=== PATIENT | female | born 2005 | race African-American/Black ===

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

== ENCOUNTER 2024-06-20 08:39 | Emergency (ER) | payer MEDICAID ==
[~2024-06-20] VITALS: Ht 170.2 cm; Wt 105.0 kg
[2024-06-20 09:08] VITALS: O2SAT 97
[2024-06-20 09:17] LABS: BASOPHILS % 0.4 % (0.0-2.0); DIFFERENTIAL COMMENT 0; EOSINOPHILS % 0.9 % (0.0-5.0); HEMOGLOBIN. 11.3 g/dL (12.0-16.0); LYMPHOCYTES % 14.2 % (20.0-50.0); MEAN CORPUSCULAR HEMOGLOBIN 22.7 pg (28.0-32.0); MEAN CORPUSCULAR HGB CONC 31.3 g/dL (31.0-37.0); MEAN CORPUSCULAR VOLUME 72.5 fL (81.0-99.0); MEAN PLATELET VOLUME 8.6 fl (7.4-10.4); MONOCYTES % 5.1 % (2.0-8.0); NEUTROPHILS % 79.4 % (40.0-76.0); PLATELET 393 x1000/uL (130-400); RED BLOOD CELL COUNT 4.96 mill/uL (4.2-5.4); RED CELL DISTRIBUTION WIDTH 16.5 % (11.6-14.6); WHITE BLOOD COUNT 12.4 x1000/uL (4.5-11.0)
[2024-06-20 09:19] LABS: CHLORIDE 106 mEq/L (98-107); POTASSIUM 3.7 mEq/L (3.5-5.1); SODIUM 137 mEq/L (136-145)
[2024-06-20 09:20] LABS: CARBON DIOXIDE 25 mEq/L (21-32)
[2024-06-20 09:25] LABS: CREATININE 0.7 mg/dL (0.6-1.0); GLUCOSE 135 mg/dL (70-105); UREA NITROGEN BLOOD 5 mg/dL (9-23)
[2024-06-20 09:26] LABS: ALANINE AMINOTRANSFERASE 35 IU/L (10-49)
[2024-06-20 09:27] LABS: ALBUMIN 5.2 g/dL (3.2-4.8); ASPARTATE AMINOTRANSFERASE 27 IU/L (<34); BILIRUBIN TOTAL 0.3 mg/dL (0.1-1.0); PROTEIN TOTAL 8.1 g/dL (6.0-8.3)
[2024-06-20 09:28] LABS: HCG SCREEN NEGATIVE
[2024-06-20 09:39] LABS: BILIRUBIN DIRECT < 0.1 mg/dL (<=3.0)
[2024-06-20] MEDS: ONDANSETRON 4MG ODT PO ONE (09:51)
[2024-06-20] MEDS: KETOROLAC 30MG/ML VIAL IM ONE (09:51)
[2024-06-20 09:55] LABS: CLARITY URINE TURBID (CLEAR); COLOR URINE YELLOW (YELLOW); GLUCOSE URINE NEGATIVE (NEGATIVE); KETONES URINE NEGATIVE (NEGATIVE); LEUKOCYTE ESTERASE URINE 1+ (NEGATIVE); NITRITE URINE NEGATIVE (NEGATIVE); OCCULT BLOOD URINE NEGATIVE (NEGATIVE); PH URINE 8.5 (4.5-8.0); PROTEIN URINE TRACE (NEGATIVE); SPECIFIC GRAVITY URINE 1.021 (1.005-1.030)
[2024-06-20 10:12] LABS: AMORPHOUS SEDIMENT URINE 4+ /lpf; SQUAMOUS EPITHELIAL CELL URINE 3+ /lpf (RARE/1+)
[2024-06-20 10:13] LABS: BACTERIA URINE 3+; RBC URINE NONE SEEN /hpf (0-2); WBC URINE 0-2 /hpf (0-2)
[2024-06-20] MEDS ORDERED: ONDA-239 PO (11:50)
[2024-06-20] MEDS ORDERED: NAPR220C61 MT (11:50)
[2024-06-20 12:03] VITALS: BP 125/74; PULSE 80; RESP 18; TEMP 36.78072; O2SAT 97
== END 2024-06-20 12:10 | disposition home or self-care (01) ==
LOC: ER 08:39
DX: K80.80 Other cholelithiasis without obstruction (principal)
CPT/HCPCS: 99285; 76705; 80076; 80048; 81003; 81025; 84703; 83690; 85025; 36415; 96372; Q0162; J1885

== ENCOUNTER 2025-02-26 17:30 | Emergency (ER) | payer MEDICAID, OTHER ==
[~2025-02-26] VITALS: Ht 172.7 cm; Wt 81.6 kg
[~2025-02-26 17:30] MED LIST: LEVO-65 MT; NAPR220C61 MT; ONDA-239 PO
[2025-02-26 17:33] VITALS: BP 111/61; TEMP 36.7; O2SAT 99
[2025-02-26 17:35] VITALS: PULSE 77; RESP 19; O2SAT 98
[2025-02-26 18:50] LABS: BASOPHILS % 0.4 % (0.0-2.0); DIFFERENTIAL COMMENT 0; EOSINOPHILS % 0.6 % (0.0-5.0); HEMATOCRIT. 35.8 % (36.0-48.0); HEMOGLOBIN. 10.9 g/dL (12.0-16.0); LYMPHOCYTES % 7.3 % (20.0-50.0); MEAN CORPUSCULAR HEMOGLOBIN 21.5 pg (28.0-32.0); MEAN CORPUSCULAR HGB CONC 30.3 g/dL (31.0-37.0); MEAN CORPUSCULAR VOLUME 70.9 fL (81.0-99.0); MEAN PLATELET VOLUME 8.8 fl (7.4-10.4); NEUTROPHILS % 86.7 % (40.0-76.0); PLATELET 374 x1000/uL (130-400); RED BLOOD CELL COUNT 5.05 mill/uL (4.2-5.4); RED CELL DISTRIBUTION WIDTH 17.9 % (11.6-14.6); WHITE BLOOD COUNT 15.9 x1000/uL (4.5-11.0)
[2025-02-26 18:59] LABS: CHLORIDE 107 mEq/L (98-107); POTASSIUM 4.1 mEq/L (3.5-5.1); SODIUM 142 mEq/L (136-145)
[2025-02-26 19:00] LABS: CALCIUM 9.8 mg/dL (8.7-10.4); CARBON DIOXIDE 28 mEq/L (21-32)
[2025-02-26 19:05] LABS: CREATININE 0.8 mg/dL (0.6-1.0); GLUCOSE 115 mg/dL (70-105); UREA NITROGEN BLOOD 10 mg/dL (9-23)
[2025-02-26 19:07] LABS: ALANINE AMINOTRANSFERASE 46 IU/L (10-49); ALBUMIN 5.1 g/dL (3.2-4.8); ASPARTATE AMINOTRANSFERASE 50 IU/L (<34); BILIRUBIN TOTAL 0.6 mg/dL (0.1-1.0); PROTEIN TOTAL 8.1 g/dL (6.0-8.3)
[2025-02-26 19:41] LABS: HCG SCREEN NEGATIVE
[2025-02-26 20:37] LABS: CLARITY URINE CLEAR (CLEAR); COLOR URINE YELLOW (YELLOW); GLUCOSE URINE NEGATIVE (NEGATIVE); KETONES URINE TRACE (NEGATIVE); LEUKOCYTE ESTERASE URINE 2+ (NEGATIVE); NITRITE URINE POSITIVE (NEGATIVE); OCCULT BLOOD URINE 2+ (NEGATIVE); PROTEIN URINE NEGATIVE (NEGATIVE); SPECIFIC GRAVITY URINE 1.017 (1.005-1.030)
[2025-02-26 21:16] LABS: BACTERIA URINE 4+; SQUAMOUS EPITHELIAL CELL URINE 1+ /lpf (RARE/1+)
[2025-02-26] MEDS ORDERED: CEFP100T8 MT (21:46)
[2025-02-26] MEDS: CEFTRIAXONE 1GM/50ML 50 ML IV ONE (22:47)
== END 2025-02-26 23:32 | disposition home or self-care (01) ==
LOC: ER 17:30
DX: N10 Acute pyelonephritis (principal); Z79.899 Other long term (current) drug therapy
CPT/HCPCS: 99285; 96365; 76705; 80053; 81003; 84703; 83690; 85025; 36415; J0696